=== PATIENT | male | born 1995 | race Caucasian/White ===

== ENCOUNTER 2020-11-07 17:26 | Emergency (ER) | payer MEDICARE, MEDICAID, SELFPAY ==
--- NOTE | ~2020-11-07 | XR_ITS ---
EXAMINATION: XR CHEST CLINICAL INFORMATION: Cough COMPARISON: None TECHNIQUE: 2 views of the chest were obtained. FINDINGS: The lungs are moderately expanded and clear. The heart size and pulmonary vascularity is normal. There are median sternotomy sutures from previous intervention. No gross bony abnormality seen. XR/XR chest 2V IMPRESSION: Unremarkable chest exam.
--- NOTE | ~2020-11-07 | XR_ITS ---
EXAMINATION: XR ANKLE, RIGHT CLINICAL INFORMATION: Pain status post injury COMPARISON: None TECHNIQUE: AP, lateral, and 2 oblique views of the right ankle. FINDINGS: No fracture or dislocation seen. The talar dome is intact. No widening of the ankle mortise. There is medial greater than lateral soft tissue swelling. XR/XR ankle RT min 3V IMPRESSION: No acute osseous abnormality seen. No greater than lateral soft tissue swelling.
[2020-11-07 17:41] VITALS: BP 97/79; PULSE 104; RESP 18; TEMP 36.7; O2SAT 95; BMI 38.7
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
[2020-11-07 18:27] VITALS: BP 97/79; PULSE 104; RESP 18; TEMP 36.7; O2SAT 95
[2020-11-07 18:40] LABS: COVID-19 Test Negative (Negative)
[2020-11-07 19:10] LABS: Amphetamine Screen Urine Not Detected (Not Detect); Barbiturates, Urine Not Detected (Not Detect); Benzodiazepines Screen Urine Not Detected (Not Detect); Cannabinoid Screen Urine Not Detected (Not Detect); Cocaine Screen Urine Not Detected (Not Detect); Opiate Screen Urine Not Detected (Not Detect); Phencyclidine Screen Urine Not Detected (Not Detect)
[2020-11-07 19:17] LABS: MANUAL DIFF FLAG NO
[2020-11-07 19:21] LABS: Basophils Absolute Auto 0.2 X10*3/uL (0.0-0.2); Eosinophils Absolute Auto 0.2 X10*3/uL (0.0-0.4); Eosinophils Percent Auto 1.7 % (0-4); Hematocrit 44.1 % (42-52); Hemoglobin 15.3 g/dl (14.0-18.0); Imm Gran Abs Auto 0.02 X10*3/uL (0.00-0.03); Imm Gran Pct Auto 0.2 % (0.0-0.4); Mean Corpuscular HGB Conc 34.7 g/dl (31.0-36.0); Mean Corpuscular Hemoglobin 34.2 pg (27.0-33.0); Mean Corpuscular Volume 98.4 fL (80-98); Mean Platelet Volume 9.4 fL (9.4-12.4); Monocytes Absolute Auto 1.2 X10*3/uL (0.1-1.2); Monocytes Percent Auto 11.2 % (2-11); Neutrophils Absolute Auto 6.1 X10*3/uL (2.0-8.3); Neutrophils Percent Auto 56.9 % (45-73); Platelet Count 259 X10*3/uL (160-400); Red Blood Count 4.48 X10*6/uL (4.60-5.80); Red Cell Distribution Width 12.8 % (11.0-16.0); White Blood Count 10.7 X10*3/uL (4.8-10.8)
--- NOTE | 2020-11-07 19:27 | PC.NURSE ---
Patient just got back from X-ray, compliant with transfer, no distress reported, pending labs, will continue to monitor.
[2020-11-07 19:36] LABS: Lithium 0.43 mmol/L (0.60-1.20)
[2020-11-07 19:38] LABS: Ethanol < 10 mg/dL
[2020-11-07 19:42] LABS: Alanine Aminotransferase 18 U/L (0-40); Albumin Level 4.3 g/dL (3.5-5.0); Alkaline Phosphatase 129 U/L (39-117); Anion Gap 13 (12-20); Aspartate Amino Transferase 13 U/L (5-37); Bilirubin Total 0.4 mg/dL (0.0-1.0); Blood Urea Nitrogen 20 mg/dL (9-16); Calcium 9.1 mg/dL (8.4-10.2); Carbon Dioxide 25 mmol/L (22-29); Chloride 107 mmol/L (96-108); Creatinine Clr Calc Pharmacy 80.5; Estimated Glomerular Filt Rate > 60; Glucose Random 117 mg/dL (60-115); Potassium 4.1 mmol/L (3.3-5.1); Sodium 141 mmol/L (135-145); Total Protein 7.5 g/dL (6.5-8.0)
--- NOTE | 2020-11-07 19:42 | PC.NURSE ---
KATALINA faxed/called/spoke with Ines/confirmed receipt of referral and notified no clinicians available tonight.
[2020-11-07] MEDS: hydrOXYzine HCL 50 MG TABLET PO (20:40)
[2020-11-07] MEDS: QUEtiapine Fumarate 200 MG TABLET PO (20:40)
[2020-11-07] MEDS: QUEtiapine Fumarate 50 MG TABLET PO (20:40)
[2020-11-07] MEDS: OXcarbazepine 300 MG TABLET PO (20:40)
[2020-11-07] MEDS: traZODone HCL 100 MG TABLET PO (20:40)
[2020-11-07] MEDS: Lithium Carbonate 300 MG CAPSULE PO (20:40)
--- NOTE | 2020-11-07 21:28 | MHC.CARE ---
Late entry: CARE team attempted to aid ED in contacting the [facility]. Pt did not know the phone number for the program, and has only been a resident there for the past two days. Records sent with pt were last updated 10/16/20 and do not have accurate contact information. This flex o writer operator attempted to call one of the contacts, however the voicemail was for a generic mobile phone without identifying information or details, therefore no message was left. Pt arrived from the [facility] in [place], however the hospital and behavioral health departments don't have any information to aid in reaching the program. Pt has been referred for [facility] crisis evaluation and will remain in ED awaiting assessment.
--- NOTE | 2020-11-07 21:41 | PC.NURSE ---
Patient is in good behavioral control, compliant with HS PO medication, no distress reported, will continue to monitor.
[2020-11-08] MEDS: Levothyroxine Sodium 75 MCG TABLET PO (06:50)
[2020-11-08] MEDS: Omeprazole 20 MG CAPSULE.DR PO (06:50)
--- NOTE | 2020-11-08 07:06 | PC.NURSE ---
Report received from CASSI Merchant. Pt awake, affect even, no concerns reported- awaiting evaluation from [facility].
[2020-11-08] MEDS: hydrOXYzine HCL 50 MG TABLET PO (07:22)
[2020-11-08 07:29] VITALS: BP 141/75; PULSE 91; RESP 20; TEMP 36.4; O2SAT 94
[2020-11-08 08:00] VITALS: RESP 18
--- NOTE | 2020-11-08 08:46 | PC.NURSE ---
[facility] in to evaluate: Late entry: pt w/ occasional congested cough. States he has had x2 days. Pt reports some abd pain. A Renschler in to evaluate.
[2020-11-08] MEDS: Lithium Carbonate 300 MG CAPSULE PO (08:58)
[2020-11-08] MEDS: Escitalopram Oxalate 5 MG TABLET PO (08:58)
[2020-11-08] MEDS: OXcarbazepine 300 MG TABLET PO (08:58)
[2020-11-08] MEDS: QUEtiapine Fumarate 50 MG TABLET PO ×2 (08:58→10:28)
--- NOTE | 2020-11-08 09:34 | PC.NURSE ---
No further coughing noted. Pt to xray without incident, awaiting results. Pt in behavioral control, conversing w/ staff, no concerns reported.
[2020-11-08 10:00] VITALS: RESP 20
--- NOTE | 2020-11-08 10:11 | PC.NURSE ---
Pt seen by N, pt may return to longterm per clinician. Reviewed w/ pt who does not want to return.
--- NOTE | 2020-11-08 10:31 | PC.NURSE ---
Pt anxious re: returning to senior care. Report given to Guillermo, at senior care, who stated that pt is in trnsition from one senior care to the next, and that this may be part of the reason he is anxious. Reviewed situation w/ A Mason, pt medicated as ordered.
--- NOTE | 2020-11-08 10:49 | PC.NURSE ---
[facility]: [phone]
--- NOTE | 2020-11-08 11:25 | PC.NURSE ---
Staff from skilled nursing in to transport pt back to skilled nursing. Pt cooperative, per report affect bright upon seeing staff, no concerns reported. discharge instructions given to staff .
== END 2020-11-08 11:27 | disposition home or self-care (01) ==
PROVIDERS: Nurse Practitioner Primary Care; Emergency Provider Internal Medicine
DX: F91.9 Conduct disorder, unspecified (principal); Z72.89 Other problems related to lifestyle; S50.812A Abrasion of left forearm, initial encounter; S50.811A Abrasion of right forearm, initial encounter; R05 Cough; Z20.822 Contact with and (suspected) exposure to COVID-19; M25.571 Pain in right ankle and joints of right foot; Q90.9 Down syndrome, unspecified; X58.XXXA Exposure to other specified factors, initial encounter; Y93.9 Activity, unspecified; Y92.049 Unspecified place in boarding-house as the place of occurrence of the external cause; Y99.9 Unspecified external cause status; Z79.899 Other long term (current) drug therapy
CPT/HCPCS: 36415; 71046; 73610; 80053; 80178; 80307; 80320; 85025; 87635; 99285; Q0163

== ENCOUNTER 2020-12-31 19:53 | Emergency (ER) | payer MEDICARE, MEDICAID, SELFPAY ==
[2020-12-31 20:05] VITALS: BP 104/65; BP 132/78; PULSE 68; PULSE 86; RESP 18; TEMP 36.7; O2SAT 96; BMI 38.9
--- NOTE | 2020-12-31 20:34 | ED_ITS ---
HPI - General Adult General Chief complaint: General Medical Stated complaint: ? Time Seen by Provider: 12/31/20 20:22 Source: patient Mode of arrival: ambulatory Limitations: other (Academic impairment) History of Present Illness HPI narrative: 25-year-old male with past medical history of Down syndrome resides in a [facility] presents via EMS for ingesting acts body spray. Patient stated that he was upset with his [facility], took some of his Axe body spray and tried to ingest it with intent to self-harm. EMS states that the Axe body spray container was full. Patient stated that he only ingested 1 or 2 sprays. Onset (ago): hour(s) (Within the hour of arrival) Severity: mild Associated symptoms: denies other symptoms Treatments prior to arrival: none Related Data Home Medications Medication Instructions Recorded Confirmed acetaminophen [Tylenol] 650 mg PO Q4H PRN 11/07/20 11/07/20 citalopram [Celexa] 10 mg PO QAM 11/07/20 11/07/20 hydroxyzine pamoate 50 mg PO Q12H 11/07/20 11/07/20 levothyroxine 75 mcg PO QAM 11/07/20 11/07/20 lithium carbonate 300 mg PO BID 11/07/20 11/07/20 meclizine 25 mg PO DAILY PRN 11/07/20 11/07/20 oxcarbazepine 300 mg PO BID 11/07/20 11/07/20 pantoprazole 40 mg PO DAILY 11/07/20 11/07/20 quetiapine 50 mg PO BID 11/07/20 11/07/20 quetiapine 200 mg PO BEDTIME 11/07/20 11/07/20 trazodone 100 mg PO BEDTIME 11/07/20 11/07/20 Allergies Allergy/AdvReac Type Severity Reaction Status Date / Time adhesive Allergy Unknown Verified 11/07/20 18:00 amoxicillin [From Augmentin] Allergy Unknown Verified 11/07/20 18:00 ciprofloxacin [From Cipro] Allergy Unknown Verified 11/07/20 18:00 clavulanic acid Allergy Unknown Verified 11/07/20 18:00 [From Augmentin] lactose Allergy Unknown Verified 11/07/20 18:00 Sulfa (Sulfonamide Allergy Unknown Verified 11/07/20 18:00 Antibiotics) Review of Systems Review of Systems: Constitutional: No Fever, No Chills ENT/Mouth: No Ear Pain, No Nasal Congestion, No sore throat Eyes: No Eye Pain, No Swelling, No Redness Cardiovascular: No Chest Pain, No SOB Respiratory: No Cough, No Sputum, No Dyspnea Gastrointestinal: No Nausea, No Vomiting, No Diarrhea, No Hematochezia, No Melena Genitourinary: No Dysuria, No Urinary Frequency, No Hematuria Musculoskeletal: No Myalgias Skin: No Skin Lesions, No rash Neuro: No Weakness, No Numbness, No Paresthesias, No Dizziness, No Headache Psych: positive Anxiety, no Depression, no SI/HI Heme/Lymph: No Lymphadenopathy Endocrine: No Polyuria, No Polydipsia Yes all other systems are reviewed and are negative [facility] Past Medical History Attestation statement: The following information was validated with the patient. Source: old records reviewed Medical History Down syndrome Social History Social History Alcohol intake: unknown Smoking Status: Unknown if ever smoked Advance Directives: No Physical Exam Vital Signs: Vital Signs: Last Vital Signs Temp 96.9 F 01/01/21 00:00 Pulse 80 01/01/21 00:00 Resp 18 01/01/21 00:00 BP 116/56 L 01/01/21 00:00 Pulse Ox 96 01/01/21 00:00 Body Mass Index 38.9 Appearance: Alert. Oriented X3. No acute distress. Head: Normal external exam consistent with Down syndrome. Normocephalic. Atraum atic. No Bond signs noted. No raccoon eyes noted Eyes: PERRLA. EOMI. Conjunctiva and sclera normal. Eyelids normal. ENT: TM's Normal. Pharynx normal. Uvula midline. Moist mucous membranes. No t rismus noted. No drooling noted. No muffled voice noted. Neck: Normal inspection. Neck supple. No adenopathy. No meningeal signs. CVS: Normal heart rate and rhythm. Heart sound normal. No murmurs noted. Pulses equal to all extremities. Respiratory: No respiratory distress. Painless inspiration. Breath sounds normal. No wheezes/rales/rhonchi noted. Chest nontender. No accessory muscle usage noted or decreased air movement noted. Abdomen: Soft and nontender. Bowel sounds normal in all 4 quadrants. No distention noted. No organomegaly noted. No visible injury noted. Back: No CVA tenderness. Full range of motion noted. Skin: Skin warm and dry. Normal skin color. Normal skin turgor. No rashes/lesions/lacerations noted. Extremities: No lower extremity edema. Extremities exhibit normal range of motion. Extremities nontender. Neuro: cranial nerves 2-12 intact, no focal neural deficits, strength 5/5 to all extremities, No motor deficit. No sensory deficit. Course Course Course Narrative: 25-year-old male with Down syndrome resides in a [facility] presents with ingesting Axe body spray with intent to self-harm. He has no complaints at this time. Will consult with poison Control. 10:21 p.m. discussion with poison Control, plan is to clear patient as he is asymptomatic and had very little intake of the Axe body spray. Will order N consult at this time. 1:21 a.m., care team consult complete. Plan of care is to discharge home and patient will follow-up with Psychiatry as an outpatient. [facility] called, patient discharge home. Medical Decision Making Differential Diagnosis Differential Diagnosis: Intent to self-harm Medical Records Medical records reviewed: Yes I reviewed the patient's medical records. Lab Data Lab results reviewed: Yes I reviewed the patient's lab results. Discharge Plan Discharge Clinical Impression: Down syndrome Patient Disposition: Home, Self-Care Instructions: Anxiety (ED) Additional Instructions: You were evaluated for spraying Axe body spray into your mouth. You sustained no significant injury from this episode. Please follow-up with [facility] as an outpatient. Thank you for choosing this emergency department for evaluation. Please follow-up with primary care physician as needed. Return to the emergency department for any new, concerning, or worsening symptoms. Prescriptions: No Action acetaminophen [Tylenol] 325 mg Tablet 650 mg PO Q4H PRN (Reason: Pain) RF: 0 citalopram [Celexa] 10 mg Tablet 10 mg PO QAM RF: 0 quetiapine 200 mg Tablet 200 mg PO BEDTIME RF: 0 hydroxyzine pamoate 50 mg Capsule 50 mg PO Q12H RF: 0 oxcarbazepine 300 mg Tablet 300 mg PO BID RF: 0 levothyroxine 75 mcg Tablet 75 mcg PO QAM RF: 0 trazodone 100 mg Tablet 100 mg PO BEDTIME RF: 0 meclizine 25 mg Tablet 25 mg PO DAILY PRN (Reason: Motion Sickness) RF: 0 lithium carbonate 300 mg Capsule 300 mg PO BID RF: 0 pantoprazole 40 mg Tablet,Delayed Release (Dr/Ec) 40 mg PO DAILY RF: 0 quetiapine 50 mg Tablet 50 mg PO BID RF: 0
[2020-12-31 21:33] VITALS: BP 113/66; PULSE 77; RESP 18; TEMP 36.7; O2SAT 96
[2020-12-31 23:10] VITALS: BP 112/66; PULSE 71; RESP 18; TEMP 36.8; O2SAT 96
[2021-01-01] VITALS: BP 116/56; PULSE 80; RESP 18; TEMP 36.1; O2SAT 96
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
--- NOTE | 2021-01-01 07:18 | PC.NURSE ---
received report from overnight nurse, patient appears to remain asleep with even unlabored breaths, appears in no distress
== END 2021-01-01 08:50 | disposition home or self-care (01) ==
PROVIDERS: Emergency Provider Internal Medicine
DX: Q90.9 Down syndrome, unspecified (principal); F41.1 Generalized anxiety disorder; F43.0 Acute stress reaction; Z79.899 Other long term (current) drug therapy
CPT/HCPCS: 99283; 99284

== ENCOUNTER 2023-12-24 10:01 | Emergency (ER) | payer MEDICARE, MEDICAID, SELFPAY ==
--- NOTE | ~2023-12-24 | XR_ITS ---
EXAMINATION: XR RIBS, BILATERAL CLINICAL INFORMATION: Reason for Exam fall, pain COMPARISON: Chest radiograph 11/08/2020 TECHNIQUE: 3 views of the Bilateral ribs. 1 view of the chest. FINDINGS: No displaced rib fracture. Clear lungs. No pneumothorax. No pleural effusion. Normal cardiomediastinal silhouette. Median sternotomy wires. XR/XR ribs BI min 4V w CXR1V IMPRESSION: No displaced rib fracture. Please note that rib radiographs have low sensitivity for detection of rib fractures and if continued clinical concern CT chest is advised.
[2023-12-24 10:07] VITALS: BP 114/73; PULSE 76; RESP 18; TEMP 36.6; O2SAT 95; BMI 39.0
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
[2023-12-24] MEDS: Ibuprofen 600 MG TABLET PO (11:45)
[2023-12-24 14:05] VITALS: BP 114/73; PULSE 76; RESP 18; TEMP 36.6; O2SAT 95
== END 2023-12-24 14:06 | disposition home or self-care (01) ==
PROVIDERS: Emergency Provider Student in an Organized Health Care Education/Training Program
DX: S20.229A Contusion of unspecified back wall of thorax, initial encounter (principal); Y04.2XXA Assault by strike against or bumped into by another person, initial encounter; Y93.9 Activity, unspecified; Y92.9 Unspecified place or not applicable; Y99.9 Unspecified external cause status
CPT/HCPCS: 71111; 99283

== ENCOUNTER 2024-10-21 15:07 | Emergency (ER) | payer MEDICARE, MEDICAID, SELFPAY ==
[2024-10-21 15:22] VITALS: BP 118/68; PULSE 79; RESP 16; TEMP 36.4; O2SAT 99; BMI 37.9
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
[2024-10-21 17:49] LABS: CT PCR NOT DETECTED (Not Detect.); NG PCR NOT DETECTED (Not Detect.)
--- OUTSIDE RECORDS SUMMARY | 2024-10-21 17:55 | XMS_ITS | Continuity of Care Document ---
Author Organization [place] - [facility], [facility] Address [address] [place] [address] Care Team Providers Care Set Illustrator Name Role Phone JED RAMSAY Primary Care Provider Assessment Encounter Date Assessment Date Assessment LastModified by Organization Details LastModified Time 10/17/2024 10/17/2024 28-year-old male presents for routine ear cleaning. Cerumen impaction removed bilaterally. Otologic exam is stable. Continue dry ear precautions. Follow-up in 6 months for routine debridement. [email or web address] Not available 10/16/2024 12:26:17 Plan of Treatment Reminders Order Date Submit Date Provider Last Modified By Organization Details Last Modified Time Details Appointments Establish ed 15 2024 11:15A M MILKA KOENIG PA-C Not available Not available Not available Lab None recorded. Referral None recorded. Procedures None recorded. Surgeries None recorded. Imaging None recorded. Medication Orders clotrimaz ole-betam ethasone 1 %-0.05 % topical cream 2024 025 [facility] [place], [address], 10/17/2024 10:03:34 Patient TargetsNo targets recorded. Patient InstructionsNo instructions recorded. Reason for Referral None Reported. Problems Name Problem SNOMED Code Status Onset Date Resolution Date Notes Provider Name and Address Organization Details Recorded Time Mixed conductiv e and sensorine ural hearing loss, bilateral 568810743 Active 2018 Mixed conductiv e and sensorine ural hearing loss, bilateral ; Note: Date Diagnosed : 9 12:03 PM (H90.6) Note: Date Diagnosed : 9 12:03 PM (H90.6) Not Available [facility] 4 01:15:58 Impacted cerumen in right ear [id number] 32265 Active 2018 Impacted cerumen, right ear; Note: Date Diagnosed : 9 10:56 AM (H61.21) Not Available [facility] 4 03:05:44 Mixed conductiv e and sensorine ural hearing loss of left ear 04547442028 107 Active 2022 Mixed conductiv e and sensorine ural hearing loss, unilatera l, left ear with restricte d hearing on the contralat eral side; Note: Date Diagnosed : 10/18/2022 11:33 AM (H90.A32) Not Available [facility] 4 03:05:43 Impacted cerumen of bilateral ears 91406074522 30468 Active 2019 Impacted cerumen, bilateral ; Note: Date Diagnosed : 05/12/2020 3:45 PM (H61.23) Not Available [facility] 4 03:05:43 Marginal perforati on of tympanic membrane 11242298 Active 2022 Other marginal perforati ons of tympanic membrane, left ear; Note: Date Diagnosed : 10/18/2022 10:21 AM (H72.2X2) Other marginal perforati ons of tympanic membrane, left ear; Note: Date Diagnosed : 9 11:59 AM (H72.2X2) ; Start Date : 9 Not Available [facility] 4 03:05:44 Down's syndrome NOS Active 2018 Down syndrome, unspecifi ed; Note: Date Diagnosed : 9 11:13 AM (Q90.9) Not Available [facility] 4 03:05:44 Otorrhea of left ear 01267931047 07512 Active 2018 Otorrhea, left ear; Note: Date Diagnosed : 9 11:59 AM (H92.12) Not Available [facility] 4 03:05:45 Follow-up visit Active 2019 Medical surveilla nce following completed treatment ; Note: Date Diagnosed : 0 11:52 AM (Z09) Not Available [facility] 4 03:05:43 Diffuse otitis externa 30009805 Active 2018 Diffuse otitis externa, left ear; Note: Date Diagnosed : 9 9:43 AM (H60.312) Not Available [facility] 4 03:05:44 Partial loss of ear ossicles 15361428 Active 2019 Partial loss of ear ossicles, left ear; Note: Date Diagnosed : 0 10:39 AM (H74.322) Not Available [facility] 4 03:05:45 Superfici al mycosis 740995300 Active 2019 Other specified superfici al mycoses; Note: Date Diagnosed : 05/12/2020 3:48 PM (B36.8) Not Available [facility] 4 03:05:42 Candidal otitis externa 73622876 Active 2018 Candidal otitis externa; Note: Date Diagnosed : 9 12:58 PM (B37.84) Not Available [facility] 4 03:05:45 Sensorine ural hearing loss in right ear 99146969468 100 Active 2022 Sensorine ural hearing loss, unilatera l, right ear, with restricte d hearing on the contralat eral side; Note: Date Diagnosed : 10/18/2022 11:33 AM (H90.A21) Not Available [facility] 4 03:05:43 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 - [facility] 5 10:01:20 Problem Notes None recorded. Procedures Surgical History Date Name Laterality Status Provider Name and Address Organization Details Recorded Time 5 Cerumen removal with microscope bilateral completed AURORA MUNGUIA MD [address] [place] [address],[place] [address], [place], [phone], [facility] - [facility] 10/16/2024 12:27:08 4 Cerumen removal without microscope bilat completed MILKA KOENIG PA-C [address] [place] [address], [place], [address], [facility] - [facility] 04/11/2024 10:27:04 Imaging Results None recorded. Procedure Notes None recorded. Medical Equipment None Reported. Allergies Allergen ID Allergen Name Allergen Category Reaction Reaction Severity Criticality Documentation Date Start Date Code Code System Note Provider Name and Address Organization Details Recorded Time 013250 Augmentin medicatio n other Not available Not available 01/09/2024 03152 2 RxNorm React ion: unkno wn, unspe cifie d;; Not Available [facility] 4 01:23:12 919598 Substance with sulfonami de structure and antibacte rial mechanism of action (substanc e) medicatio n other Not available Not available 01/09/2024 72505 8003 SNOMED React ion: unkno wn, unspe cifie d;; Not Available [facility] 4 01:23:13 Medications Name Sig Start Date Stop Date Status Note LastModified by Organization Details LastModified Time Prescript ion - Prior Authoriza tion Request active Script Copy/Eve or Auth^Scr ipt Copy/Eve or Auth_201 09064 Not Available Not Available Not Available ketoconaz ole 2 % shampoo active Not Available Not Available Not Available Ciloxan 0.3 % eye ointment 09/12 completed Medicati on ID: [id number] P austenricynthia d By Name: DENISE Kilgore nd Name: Ciloxan Send Method: E-Prescr ibed Sub s Allowed: subs OK Speci al Instruct ion: Apply to external ear TID X 2 weeks Me dication GenericN speedy: Ciloxan Not Available Not Available Not Available citalopra m 40 mg tablet 10/18 completed Medicati on ID: [id number] B rand Name: citalopr am Send Method: E-Prescr ibed Sub s Allowed: subs OK Medic ationGen ericName : citalopr am Not Available Not Available Not Available ofloxacin 0.3 % eye drops Apply 4 drop twice a day 10/17 completed Medicati on ID: [id number] D uration Value: 14 Brand Name: ofloxaci n Send Method: E-Prescr ibed Sub s Allowed: subs OK Medic ationGen ericName : ofloxaci n Not Available Not Available Not Available citalopra m 10 mg tablet active Not Available Not Available Not Available quetiapin e 200 mg tablet 10/18 completed Medicati on ID: [id number] B rand Name: quetiapi ne Send Method: E-Prescr ibed Sub s Allowed: subs OK Medic ationGen ericName : quetiapi ne Not Available Not Available Not Available Calcium Antacid 200 mg (as calcium carbonate 500 mg) chewable tablet active Not Available Not Available Not Available hydroxyzi ne HCl 50 mg tablet active Not Available Not Available No t Available triamcino lone acetonide 0.1 % topical cream active Not Available Not Available Not Available acetamino phen ER 650 mg tablet,ex tended release 10/17 completed Not Available Not Available Not Available levothyro xine 88 mcg tablet active Not Available Not Available Not Available trazodone 100 mg tablet active Not Available Not Available Not Available Clarisa-Hex 4 % topical liquid active Not Available Not Available Not Available lithium carbonate 300 mg capsule active Not Available Not Available Not Available pantopraz ole 40 mg tablet,de layed release Take 2 tablet by mouth once a day active Not Available Not Available No t Available clotrimaz ole-betam ethasone 1 %-0.05 % topical cream APPLY TO THE SKIN OF THE AFFECTED EXTERNAL EAR CANAL WITH FINGERTI P 3 TIMES PER DAY FOR 2 WEEKS 2024 active Not Available Not Available Not Avai lable clotrimaz ole 1 % topical solution 07/11 completed Medicati on ID: [id number] D uration Value: 14 Prescri bed By Name: Maninder Chávez nd Name: clotrima arely andrews Method: E-Prescr ibed Sub s Allowed: subs OK Speci al Instruct ion: 4 drops to affected ear three times a day Medi cationGe nericNam e: clotrima zole Not Available Not Available Not Available mupirocin 2 % topical ointment 1 a small amount to affected area 10/17 completed Not Available Not Available Not Available guanfacin e 2 mg tablet 10/18 completed Medicati on ID: [id number] B rand Name: sureshci ne Send Method: E-Prescr ibed Sub s Allowed: subs OK Medic ationGen ericName : guanfaci ne Not Available Not Available Not Available lithium carbonate 300 mg tablet 10/17 completed Medicati on ID: [id number] B rand Name: lithium carbonat e Send Method: E-Prescr ibed Sub s Allowed: subs OK Medic ationGen ericName : lithium carbonat e Not Available Not Available Not Available risperido ne 1 mg tablet active Not Available Not Available Not Available TobraDex 0.3 %-0.1 % eye drops,ana pension 07/15 completed Medicati on ID: [id number] P santiago d By Name: DENISE Kilgore nd Name: TobraDex Send Method: E-Prescr ibed Sub s Allowed: subs OK Speci al Instruct ion: 4 drops into both ears BID X 14 days Med icationG enericNa me: TobraDex Not Available Not Available Not Available Ciprodex 0.3 %-0.1 % ear drops,ana pension 4 drop 10/17 completed Medicati on ID: [id number] D uration Value: 14 Prescri bed By Name: DENISE Kilgore nd Name: Ciprodex Send Method: E-Prescr ibed Sub s Allowed: subs OK Medic ationGen ericName : Ciprodex Not Available Not Available Not Available Dramamine Less Drowsy 25 mg tablet 1 tablet by mouth 10/18 completed Medicati on ID: [id number] P santiago d By Name: DENISE Kilgore nd Name: Dramamin e Less Drowsy S end Method: E-Prescr ibed Sub s Allowed: subs OK Speci al Instruct ion: 30-60 min before travel [place] Name: Dramamin e Less Drowsy Not Available Not Available Not Available diclofena c 1 % topical gel 10/17 completed Not Available Not Available Not Available Vitals Date Recorded Body height Body weight Provider Name and Address Organization Details Last Updated DateTime 10/17/2024 144.78 cm 55254 g Rose Rabago [place] - [facility] 10/17/2024 09:38:43 Social History None recorded. Functional Status None recorded. Mental Status None recorded. Family History Nothing Reported. Medical History Condition Response Thyroid Problems Y GERD/Reflux Y Past Encounters Encounter ID Performer Location Encounter Start Date Encounter Closed Date Diagnosis/Indication Diagnosis SNOMED-CT Code Diagnosis ICD10 Code Diagnosis Note [id number] AURORA MUNGUIA MD [facility] [address] [address] 10/17/2024 09:36:29 10/17/2024 10:07:49 Impacted cerumen of bilateral ears [id number] 303859 H61.23 significan t cerumen impactions removed bilaterall y. Marginal p erforation of tympanic membrane 88815501 H72.2X2 Partial lo ss of ear ossicles 29815614 H74.322 Dermal mycosis 65230005 B36.9 The skin of the {{right le ft bilater al*}} external auditory canal is showing signs of fungal dermatitis . Recommend applicatio n of clotrimazo le/betamet hasone cream to be applied by fingertip to the external auditory meatus three times a day for two weeks. Medication applicatio n described in detail to patient's caregiver. Patient may repeat this as necessary for recurrence of symptoms. Prescripti on sent to patient's pharmacy. Avoidance of Q-tips recommende d to reduce the risk of recurrence . Health Concerns Section Related Observation LastModified by Organization Detai ls LastModified Time None Recorded Concern Status LastModified by Organization Details LastModified Time None Recorded Payers Encounter Date Sequence Insurance Name Policy Number Policy Maya Covered Member ID Maya Member ID Guarantor Name 10/17/2024 2 [place]: [facility] Mauricio Jacobsen [id number] Mauricio Jacobsen Notes Date Note Type Note Provider Name and Address Organization Details Recorded Time 10/17/2024 text/html 28-year-old male with Down syndrome who underwent left-sided transcanal ossiculoplasty with me back in May 2020 presents for routine ear cleaning. The ossicular chain was reconstructed with a Zarate malleus to oval window prosthesis. Patient noted to have a new left-sided tympanic membrane perforation at his visit in 2022. Patient comes in today with a staff member from his home. No episodes of pain or discharge. He is not wearing his hearing aids on a regular basis. Patient comes in reporting pain in the left ear today. His staff member was not aware of him complaining of pain before the today. AURORA MUNGUIA MD [address] [place] [address], [phone], [facility] - [facility] 10/17/2024 10:08:26
--- OUTSIDE RECORDS SUMMARY | 2024-10-21 17:55 | XMS_ITS | Data Portability ---
Author Organization [place] - [facility], Allergy Address [address] [address] Care Team Providers Care Shirt Hemmer Name Role Phone JED RAMSAY Primary Care Provider [phone] Assessment Encounter Date Assessment Date Assessment LastModified by Organization Details LastModified Time 04/11/2024 04/11/2024 28-year-old male presents for routine ear cleaning. Cerumen impaction removed bilaterally. Otologic exam is stable. Continue dry ear precautions. Follow-up in 6 months for routine debridement. [email or web address] Not available 04/11/2024 10:27:48 10/17/2024 10/17/2024 28-year-old male presents for routine ear cleaning. Cerumen impaction removed bilaterally. Otologic exam is stable. Continue dry ear precautions. Follow-up in 6 months for routine debridement. [email or web address] Not available 10/16/2024 12:26:17 Plan of Treatment [...] [facility], [address] [facility], [place], [address], 10/17/2024 10:03:34 Patient TargetsNo targets recorded. Patient InstructionsNo instructions recorded. Reason for Referral None Reported. Results Created Date Observation Date Name Description Value Unit Range Abnormal Flag Note LastModifiedBy Organization Detail LastModifiedTime 04/16/20 24 09/12/2019 imagi ng/di agnos tic resul t No observ ation record ed. [email or web address] Not Available 19:06:11 04/16/20 24 09/13/2019 imagi ng/di agnos tic resul t No observ ation record ed. [email or web address] Not Available 19:06:12 04/16/20 24 10/12/2023 imagi ng/di agnos tic resul t No observ ation record ed. [email or web address] Not Available 19:06:22 04/16/20 24 10/18/2022 imagi ng/di agnos tic resul t No observ ation record ed. [email or web address] Not Available 19:06:27 04/16/20 24 05/12/2020 imagi ng/di agnos tic resul t No observ ation record ed. [email or web address] Not Available 19:06:31 04/16/20 24 07/23/2019 imagi ng/di agnos tic resul t No observ ation record ed. [email or web address] Not Available 19:07:31 04/16/20 24 09/12/2019 audio gram No observ ation record ed. [email or web address] Not Available 19:07:38 04/16/20 24 10/12/2023 audio gram No observ ation record ed. [email or web address] Not Available 19:07:45 04/16/20 24 10/18/2022 audio gram No observ ation record ed. [email or web address] Not Available 19:07:53 04/16/20 24 05/12/2020 audio gram No observ ation record ed. [email or web address] Not Available 19:08:07 04/16/20 24 07/23/2019 audio gram No observ ation record ed. [email or web address] Not Available 19:08:39 Result Notes None recorded. Problems Name Problem SNOMED Code Status Onset Date Resolution Date Notes Provider Name and Address Organization Details Recorded Time Mixed conductiv e and sensorine ural hearing loss, bilateral 430404779 Active 2018 Mixed conductiv e and sensorine ural hearing loss, bilateral ; Note: Date Diagnosed : 9 12:03 PM (H90.6) Note: Date Diagnosed : 9 12:03 PM (H90.6) Not Available [facility] 4 01:15:58 Impacted cerumen in right ear 11508322509 00582 Active 2018 Impacted cerumen, right ear; Note: Date Diagnosed : 9 10:56 AM (H61.21) Not Available [facility] 4 03:05:44 Mixed conductiv e and sensorine ural hearing loss of left ear 35231631708 107 Active 2022 Mixed conductiv e and sensorine ural hearing loss, unilatera l, left ear with restricte d hearing on the contralat eral side; Note: Date Diagnosed : 10/18/2022 11:33 AM (H90.A32) Not Available [facility] 4 03:05:43 Impacted cerumen of bilateral ears 53293621813 43500 Active 2019 Impacted cerumen, bilateral ; Note: Date Diagnosed : 05/12/2020 3:45 PM (H61.23) Not Available [facility] 4 03:05:43 Marginal perforati on of tympanic membrane 03568440 Active 2022 Other marginal perforati ons of tympanic membrane, left ear; Note: Date Diagnosed : 10/18/2022 10:21 AM (H72.2X2) Other marginal perforati ons of tympanic membrane, left ear; Note: Date Diagnosed : 9 11:59 AM (H72.2X2) ; Start Date : 9 Not Available [facility] 4 03:05:44 Down's syndrome NOS Active 2018 Down syndrome, unspecifi ed; Note: Date Diagnosed : 9 11:13 AM (Q90.9) Not Available [facility] 4 03:05:44 Otorrhea of left ear 03371164881 81189 Active 2018 Otorrhea, left ear; Note: Date Diagnosed : 9 11:59 AM (H92.12) Not Available [facility] 4 03:05:45 Follow-up visit Active 2019 Medical surveilla nce following completed treatment ; Note: Date Diagnosed : 0 11:52 AM (Z09) Not Available [facility] 4 03:05:43 Diffuse otitis externa 37466065 Active 2018 Diffuse otitis externa, left ear; Note: Date Diagnosed : 9 9:43 AM (H60.312) Not Available [facility] 4 03:05:44 Partial loss of ear ossicles 94970233 Active 2019 Partial loss of ear ossicles, left ear; Note: Date Diagnosed : 0 10:39 AM (H74.322) Not Available [facility] 4 03:05:45 Superfici al mycosis 749685901 Active 2019 Other specified superfici al mycoses; Note: Date Diagnosed : 05/12/2020 3:48 PM (B36.8) Not Available [facility] 4 03:05:42 Candidal otitis externa 74086753 Active 2018 Candidal otitis externa; Note: Date Diagnosed : 9 12:58 PM (B37.84) Not Available [facility] 4 03:05:45 Sensorine ural hearing loss in right ear 86277974154 100 Active 2022 Sensorine ural hearing loss, unilatera l, right ear, with restricte d hearing on the contralat eral side; Note: Date Diagnosed : 10/18/2022 11:33 AM (H90.A21) Not Available [facility] 4 03:05:43 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 Procedures Surgical History Date Name Laterality Status Provider Name and Address Organization Details Recorded Time 5 Cerumen removal with microscope bilateral completed AURORA MUNGUIA MD [address] [facility],[place] [address], [place], [address], [facility] - [facility] 10/16/2024 12:27:08 4 Cerumen removal without microscope bilat completed MIKLA KOENIG PA-C [address] [facility], [place], [address], [facility] - [facility] 04/11/2024 10:27:04 Imaging Results Imaging Date Name Status LastModified by Organiz ation Details LastModified Time 09/12/2019 imaging/diagno stic result completed Information not available 04/16/2024 19:06:11 09/13/2019 imaging/diagno stic result completed Information not available 04/16/2024 19:06:12 10/12/2023 imaging/diagno stic result completed Information not available 04/16/2024 19:06:22 10/18/2022 imaging/diagno stic result completed Information not available 04/16/2024 19:06:27 05/12/2020 imaging/diagno stic result completed Information not available 04/16/2024 19:06:31 07/23/2019 imaging/diagno stic result completed Information not available 04/16/2024 19:07:31 09/12/2019 audiogram completed Information not available 04/16/2024 19:07:38 10/12/2023 audiogram completed Information not available 04/16/2024 19:07:45 10/18/2022 audiogram completed Information not available 04/16/2024 19:07:53 05/12/2020 audiogram completed Information not available 04/16/2024 19:08:07 07/23/2019 audiogram completed Information not available 04/16/2024 19:08:39 Procedure Notes None recorded. Medical Equipment None Reported. Allergies Allergen ID Allergen Name Allergen Category Reaction Reaction Severity Criticality Documentation Date Start Date Code Code System Note Provider Name and Address Organization Details Recorded Time 896374 Augmentin medicatio n other Not available Not available 01/09/2024 58512 2 RxNorm React ion: unkno wn, unspe cifie d;; Not Available [facility] 4 01:23:12 358394 Substance with sulfonami de structure and antibacte rial mechanism of action (substanc e) medicatio n other Not available Not available 01/09/2024 63156 8003 SNOMED React ion: unkno wn, unspe cifie d;; Not Available [facility] 4 01:23:13 Medications Name Sig Start Date Stop Date Status Note LastModified by Organization Details LastModified Time Prescript ion - Prior Authoriza tion Request active Script Copy/Eve or Auth^Scr ipt Copy/Eve or Auth_201 78946 Not Available Not Available Not Available ketoconaz ole 2 % shampoo active Not Available Not Available Not Available Ciloxan 0.3 % eye ointment 09/12 completed Medicati on ID: [id number] P austenricynthia d By Name: DENISE Kilgore nd Name: Ciloxan Send Method: E-Prescr ibed Sub s Allowed: subs OK Speci al Instruct ion: Apply to external ear TID X 2 weeks Me dication GenericN speedy: Ciloxan Not Available Not Available Not Available citalopra m 40 mg tablet 10/18 completed Medicati on ID: [id number] B rand Name: citalopr am Send Method: E-Prescr ibed Sub s Allowed: subs OK Medic ationGen ericName : citalopr am Not Available Not Available Not Available ofloxacin 0.3 % eye drops Apply 4 drop twice a day 10/17 completed Medicati on ID: [id number] D uration Value: 14 Brand Name: ofloxaci n Send Method: E-Prescr ibed Sub s Allowed: subs OK Medic ationGen ericName : ofloxaci n Not Available Not Available Not Available citalopra m 10 mg tablet active Not Available Not Available Not Available quetiapin e 200 mg tablet 10/18 completed Medicati on ID: [id number] B rand Name: quetiapi ne Send Method: [...] topical solution 07/11 completed Medicati on ID: [id number] D uration Value: 14 Prescri bed By [...] mg tablet 10/18 completed Medicati on ID: [id number] B rand Name: guanfaci ne Send Method: E-Prescr ibed Sub s Allowed: subs OK Medic ationGen ericName : guanfaci ne Not Available Not Available Not Available lithium carbonate 300 mg tablet 10/17 completed Medicati on ID: [id number] B rand Name: lithium carbonat e Send Method: E-Prescr ibed Sub s Allowed: subs OK Medic ationGen ericName : lithium carbonat e Not Available Not Available Not Available risperido ne 1 mg tablet active Not Available Not Available Not Available TobraDex 0.3 %-0.1 % eye drops,ana pension 07/15 completed Medicati on ID: [id number] P rescribe d By Name: DENISE Kilgore nd Name: TobraDex Send Method: E-Prescr ibed Sub s Allowed: subs OK Speci al Instruct ion: 4 drops into both ears BID X 14 days Med icationG enericNa me: TobraDex Not Available Not Available Not Available Ciprodex 0.3 %-0.1 % ear drops,ana pension 4 drop 10/17 completed Medicati on ID: [id number] D uration Value: 14 Prescri bed By Name: DENISE Kilgore nd Name: Ciprodex Send Method: E-Prescr ibed Sub s Allowed: subs OK Medic ationGen ericName : Ciprodex Not Available Not Available Not Available Dramamine Less Drowsy 25 mg tablet 1 tablet by mouth 10/18 completed Medicati on ID: [id number] P rescribe d By Name: DENISE Kilgore nd Name: Dramamin e Less Drowsy S end Method: E-Prescr ibed Sub s Allowed: subs CASI Speci al Instruct ion: 30-60 min before travel Sven omar Louis Name: Dramamin e Less Drowsy Not Available Not Available Not Available diclofena c 1 % topical gel 10/17 completed Not Available Not Available Not Available Vitals Date Recorded Body height Body mass index (BMI) Body weight Provider Name and Address Organization Details Last Updated DateTime 04/11/2024 144.78 cm 39.8 kg/m2 31391 g Marcy Guerra [place] - [facility] 04/11/2024 09:42:31 Date Recorded Body height Body weight Provider Name and Address Organization Details Last Updated DateTime 10/17/2024 144.78 cm 41276 g Rose Rabago [place] - [facility] 10/17/2024 09:38:43 Social History None recorded. Functional Status None recorded. Mental Status None recorded. Family History Nothing Reported. Medical History Condition Response Thyroid Problems Y GERD/Reflux Y Past Encounters Encounter ID Performer Location Encounter Start Date Encounter Closed Date Diagnosis/Indication Diagnosis SNOMED-CT Code Diagnosis ICD10 Code Diagnosis Note [id number] AURORA MUNGUIA MD [facility] [address] [address] 04/11/2024 09:23:25 04/12/2024 07:26:18 Impacted cerumen of bilateral ears 0272060892 487753 H61.23 Marginal p erforation of tympanic membrane 11726423 H72.2X2 Partial lo ss of ear ossicles 18487253 H74.322 [id number] AURORA MUNGUIA MD [facility] [address] [address] 10/17/2024 09:36:29 10/17/2024 10:07:49 Impacted cerumen of bilateral ears 2987545889 738636 H61.23 significan t cerumen impactions removed bilaterall y. Marginal p erforation of tympanic membrane 40556478 H72.2X2 Partial lo ss of ear ossicles 45154019 H74.322 Dermal mycosis 91261991 B36.9 The skin of the {{right le [...] by Organization Details LastModified Time None Recorded Advance Directives Directive None Recorded Payers Encounter Date Sequence Insurance Name Policy Number Policy Maya Covered Member ID Maya Member ID Guarantor Name 04/11/2024 2 [place] [facility] Mauricio Jacobsen [id number] Mauricio Jaocbsen 10/17/2024 2 [place] [facility] Mauricio Jacobsen [id number] Mauricio Jacobsen Notes Date Note Type Note Provider Name and Address Organization Details Recorded Time 04/11/2024 text/html 28-year-old male with Down syndrome who underwent left-sided transcanal ossiculoplasty with Dr. Fernie henson in May 2020 presents for routine ear [...] his hearing aids on a regular basis. AURORA MUNGUIA MD [address] [place] [address], [address], [facility] 04/11/2024 17:18:15 10/17/2024 text/html 28-year-old male with Down syndrome who underwent left-sided transcanal ossiculoplasty with me henson in May 2020 presents for routine ear [...] pain before the today. AURORA MUNGUIA MD [address] [place] [address],[address], [address], [facility] 10/17/2024 10:08:26
--- OUTSIDE RECORDS SUMMARY | 2024-10-21 17:55 | XMS_ITS | Clinical Summary ---
Author Organization 175 [facility] Address [address] [place] [address] Phone Care Team Providers Care Unit Leader Name Role Phone Obie Mtz MD Primary Care Provider [phone] Allergies Active Allergy Reactions Criticality Noted Date Comments Adhesive Tape-Silicones 03/10/2021 Amoxicillin-Pot Clavulanate 03/10/20 21 Ciprofloxacin Hcl 03/10/2021 Lactose 03/10/2021 Sulfa (Sulfonamide Antibiotics) 02/25 Medications HYDROXYZINE HCL ORAL Take by mouth. Activ e levothyroxine sodium (levothyroxine, bulk,) 100 % powder Take by mouth. Activ e LITHIUM CARBONATE ORAL Take by mouth. Activ e MECLIZINE HCL, BULK, MISC Take by mouth. Active acetaminophen (TYLENOL 8 HOUR) 650 mg 8 hr tablet Take 650 mg by mouth every 8 hours as needed. Active ammonium lactate (LAC-HYDRIN) 12 % lotion Apply to bottom of feet daily wherever there is thick skin. At night wear socks to bed 3 Active betamethasone dipropionate (DIPROSONE) 0.05 % ointment Apply topically 2 times daily. Active citalopram (CeleXA) 10 mg tablet Take 10 mg by mouth daily. Active clotrimazole (LOTRIMIN) 1 % cream Apply to skin and toenails daily for 12 weeks 3 Active diclofenac (VOLTAREN) 1 % topical gel Apply 4 g topically 2 times daily. 3 Active ibuprofen (ADVIL,MOTRIN) 800 mg tablet Take 800 mg by mouth every 8 hours as needed. Active pantoprazole (PROTONIX) 40 mg EC tablet Take 40 mg by mouth daily. Active QUEtiapine (SEROquel) 100 mg tablet Take 100 mg by mouth 2 times daily. Active risperiDONE (RisperDAL) 1 mg tablet Take 1 mg by mouth 2 times daily. Active traZODone (DESYREL) 100 mg tablet Take 100 mg by mouth at bedtime. Active Encounters Date Type Department Care Team Description 09/17/2024 Telephone Orthopedic Surgery [place] [address] [phone] Mauricio Suarez DPM 08/26/2024 1:45 PM EST Office Visit Orthopedic Surgery [place] [address] [address] Mauricio Suarez DPM Dermatophytosis of nail (Primary Dx); Xerosis of skin from Last 3 Months Medical History Medical History Date Comments Depression DX:Depression Agitation DX:Agitation Mood disorder ([facility]) DX:Mood disorder ([facility]) Insomnia DX:Insomnia Eczema DX:Eczema GERD (gastroesophageal reflux disease) DX:GERD (gastroesophageal reflux disease) Body aches DX:Body aches Social History Tobacco Use Types Packs/Day Years Used Date Smoking Tobacco: Never Smokeless Tobacco: Never Alcohol Use Standard Drinks/Week Comments Never 0 (1 standard drink = 0.6 oz pur e alcohol) Sex and Gender Information Value Date Recorded Sex Assigned at Not on file Legal Sex Male 3:16 PM EST Gender Identity Not on file Sexual Orientation Not on file Obstetrics History Last Filed Vital Signs Vital Sign Reading Time Taken Comments Blood Pressure - - Pulse - - Temperature - - Respiratory Rate - - Oxygen Saturation - - Inhaled Oxygen Concentration - - Weight 80.3 kg (177 lb) 08/26/2024 2:01 PM EST Height 152.4 cm (5') 08/26/2024 2:01 PM EST Body Mass Index 34.57 08/26/2024 2:01 PM EST Plan of Treatment Upcoming Encounters Date Type Department Care Team ([facility] Contact Info) Description 02/24/2025 1:30 PM EDT Office Visit Orthopedic Surgery [facility] [address] [phone] Mauricio Suarez DPSven 175 [facility] [address] [place] [address] Health Maintenance Due Date Last Done Comments DTaP,Tdap,and Td Vaccines (1 - Tdap) 2013 Hepatitis B Vaccines (1 of 3 - 19+ 3-dose series) 2013 Depression Screening 07/27/2022 HIV Screening 07/27/2022 Hepatitis C Screening 07/27/2022 Medicare Annual Wellness Visit 07/27/2022 Social Influencers of Health Screening 07/27/2022 COVID-19 Vaccine ( season) 2024 11/16/2021, 10/07/2020, 09/16/2020 Influenza Vaccine Completed 07/23/2024, , 06/01/2022, Additional history exists HIB Vaccines Aged Out No longer eligi ble based on patient's age to complete this topic HPV Vaccines Aged Out No longer eligi ble based on patient's age to complete this topic Hepatitis A Vaccines Aged Out No long er eligible based on patient's age to complete this topic IPV Vaccines Aged Out No longer eligi ble based on patient's age to complete this topic MMR Vaccines Aged Out No longer eligi ble based on patient's age to complete this topic Meningococcal ACWY Vaccine Aged Out N o longer eligible based on patient's age to complete this topic Meningococcal B Vacine Aged Out No lo nger eligible based on patient's age to complete this topic Pneumococcal Vaccine: Pediatrics (0 to 5 Years) and At-Risk Patients (6 to 64 Years) Aged Out No longer eligible based on patient's age to complete this topic RSV Immunization Patients Under 20 months Aged Out No longer eligible based on patient's age to complete this topic Varicella Vaccines Aged Out No longer eligible based on patient's age to complete this topic Insurance MEDICARE [place]ICAID - [place] Care Teams Unit Leader Relationship Specialty Start Date End Date Obie Mtz MD [address] [place] [id number] PCP - General Internal Medicine 06/06/22
[2024-10-21 21:40] LABS: MANUAL DIFF FLAG NO
[2024-10-21 21:41] LABS: Basophils Absolute Auto 0.2 X10*3/uL (0.0-0.2); Basophils Percent Auto 1.8 % (0-2); Eosinophils Absolute Auto 0.2 X10*3/uL (0.0-0.4); Eosinophils Percent Auto 1.4 % (0-4); Hematocrit 39.3 % (42.0-52.0); Hemoglobin 14.1 g/dl (14.0-18.0); Imm Gran Abs Auto 0.03 X10*3/uL (0.00-0.03); Imm Gran Pct Auto 0.3 % (0.0-0.4); Lymphocytes Absolute Auto 4.1 X10*3/uL (1.2-4.9); Lymphocytes Percent Auto 37.8 % (20-40); Mean Corpuscular HGB Conc 35.9 g/dl (31.0-36.0); Mean Corpuscular Hemoglobin 34.5 pg (27.0-33.0); Mean Corpuscular Volume 96.1 fL (80.0-98.0); Mean Platelet Volume 9.4 fL (9.4-12.4); Monocytes Percent Auto 9.6 % (2-11); Neutrophils Absolute Auto 5.3 x10*3/uL (2.0-8.3); Neutrophils Percent Auto 49.1 % (45-73); Platelet Count 265 X10*3/uL (160-400); Red Blood Count 4.09 X10*6/uL (4.60-5.80); Red Cell Distribution Width 13.3 % (11.0-16.0); White Blood Count 10.7 X10*3/uL (4.8-10.8)
[2024-10-21 22:05] LABS: Alanine Aminotransferase 45 U/L (0-40); Alkaline Phosphatase 103 U/L (39-117); Anion Gap 11 (12-20); Aspartate Amino Transferase 23 U/L (5-37); Bilirubin Direct < 0.2 mg/dL (0.0-0.5); Bilirubin Total 0.2 mg/dL (0.0-1.0); Blood Urea Nitrogen 10 mg/dL (9-16); Calcium 9.2 mg/dL (8.4-10.2); Carbon Dioxide 25 mmol/L (22-29); Chloride 109 mmol/L (96-108); Creatinine Clr Calc Pharmacy 94.7; Estimated Glomerular Filt Rate > 60; Glucose Random 105 mg/dL (60-115); Potassium 3.7 mmol/L (3.3-5.1); Sodium 141 mmol/L (135-145); Total Protein 7.8 g/dL (6.5-8.0)
[2024-10-21 22:24] VITALS: BP 109/69; PULSE 71; RESP 16; TEMP 36.7; O2SAT 97
[2024-10-21 22:25] VITALS: BP 109/69; PULSE 71; RESP 16; TEMP 36.7; O2SAT 97
[2024-10-22 08:14] LABS: HBS Num1 0.23 mIU/mL (0-7.99); HBc Num1 0.24 S/CO (0.00-0.79); HBsAGNum1 0.43 S/CO (0.00-0.99); Hepatitis A Antibody IgM 0.16 Index (0-0.79); Hepatitis B Core Antibody Nonreactive (Nonreactive); Hepatitis B Surface Antigen Negative (Negative); ~HepC Num1 0.17 S/CO (0.00-0.79); ~Hepatitis A Antibody IgM Nonreactive (Nonreactive); ~Hepatitis B Surface Antibody NONREACTIVE (Nonreactive); ~Hepatitis C Antibody Nonreactive (Nonreactive)
[2024-10-22 08:17] LABS: HIV AB/AG Nonreactive (Nonreactive)
[2024-10-22 08:37] LABS: Syphilis Screen Nonreactive (Nonreactive)
== END 2024-10-21 22:26 | disposition home or self-care (01) ==
PROVIDERS: Physician Assistant Medical; Emergency Provider Emergency Medicine
DX: T76.21XA Adult sexual abuse, suspected, initial encounter (principal); Z79.899 Other long term (current) drug therapy; Z20.2 Contact with and (suspected) exposure to infections with a predominantly sexual mode of transmission; Z20.828 Contact with and (suspected) exposure to other viral communicable diseases
CPT/HCPCS: 36415; 80048; 80076; 85025; 86140; 86704; 86706; 86709; 86780; 86803; 87340; 87389; 87491; 87591; 99283